=== PATIENT | female | born 1965 | race African-American/Black ===

== ENCOUNTER 2018-02-28 09:15 | Outpatient (CLI) | payer MEDICARE, MEDICAID | END 2018-02-28 09:16 | disposition home or self-care (01) | LOC: BICMAMMO 09:15 | PROVIDERS: ATTEND Internal Medicine | DX: Z12.31 Encounter for screening mammogram for malignant neoplasm of breast (principal); Z13.820 Encounter for screening for osteoporosis; M81.0 Age-related osteoporosis without current pathological fracture; M85.859 Other specified disorders of bone density and structure, unspecified thigh; Z78.0 Asymptomatic menopausal state; Z80.3 Family history of malignant neoplasm of breast | CPT/HCPCS: 77063; 77067; 77080 ==